=== PATIENT | female | born 1980 | race Caucasian/White ===

== ENCOUNTER 2017-10-09 11:28 | Inpatient (IN) | payer BC ==
[~2017-10-09] VITALS: Ht 170.2 cm; Wt 81.6 kg
--- NOTE | 2017-10-09 13:00 | NUR ---
REC'D TO ROOM 2230 AWAKE AND ALERT VIA WC. RESP EVEN AND UNLABORED WITH NO DISTRESS NOTED. DRESSING INTACT TO LEFT LOWER LEG. CAN EXPRESS NEEDS AND WANTS. NO C/O NOTED OR VOICED. IV STARTED TO RIGHT FOREARM WHICH WAS SUCCESSFUL. ASSESSMENT COMPLETED AT THIS TIME. C/L IN REACH AT BEDSIDE.
[2017-10-09 13:14] LABS: BASOPHILS 0.1 % (0-2); EOSINOPHILS 1.3 % (0-7); HEMATOCRIT 38.9 % (36.0-48.0); HEMOGLOBIN 13.2 g/dL (12-16); IMMATURE GRANULOCYTES 0.3 % (0-5); LYMPHOCYTES 18.8 % (15-50); MCHC 33.9 g/dL (31.0-37.0); MCV 88.4 fL (80.0-100.0); MEAN PLATELET VOLUME 11.1 fL (7.4-10.4); MONOCYTES 7.7 % (2-11); NEUTROPHILS 71.8 % (40-80); PLATELET COUNT 227 10x3/uL (130-400); RDW 13.2 % (11.5-14.5); WBC 8.7 10x3/uL (4.8-10.8)
[2017-10-09 13:19] LABS: ALBUMIN 3.2 g/dL (3.4-5.0); ALKALINE PHOSPHATASE 73 U/L (46-116); ALT (SGPT) 22 U/L (10-68); BILIRUBIN - TOTAL 0.31 mg/dL (0.2-1.3); CALC OSMOLALITY 279 mosm/kg (275-300); CALCIUM 8.7 mg/dL (8.5-10.1); CARBON DIOXIDE 26.3 mmol/L (21.0-32.0); CHLORIDE - SERUM 100 mmol/L (98-107); CREATININE - SERUM 0.8 mg/dL (0.6-1.3); POTASSIUM - SERUM 3.9 mmol/L (3.5-5.1); PROTEIN - SERUM 6.9 g/dL (6.4-8.2); SODIUM 137 mmol/L (136-145); UREA NITROGEN 14 mg/dL (7-18); eGFR NON AFRICAN AMERICAN 85 mL/min (90-120)
[2017-10-09 13:20] LABS: GLUCOSE 185 mg/dL (74-106)
[2017-10-09 15:04] VITALS: BP 101/68; BMI 28.2
[2017-10-09] MEDS ORDERED: INVOKANA300 MG PO (18:45)
[2017-10-09] MEDS ORDERED: GLUCOPHAGE1000 MG PO (18:45)
[2017-10-09] MEDS ORDERED: PROTONIX40 MG PO (18:45)
[2017-10-09] MEDS ORDERED: SYNTHROID50 MCG PO (18:46)
[2017-10-09] MEDS ORDERED: LISINOPRIL2.5 MG PO (18:46)
[2017-10-09] MEDS ORDERED: ADDERALL XR 3030 MG PO (18:48)
[2017-10-09] MEDS ORDERED: CLEOCIN HCL150 MG PO (18:49)
[2017-10-09] MEDS ORDERED: HYDROCODON-ACE1 EAC7 PO (18:50)
--- NOTE | 2017-10-09 19:00 | NUR ---
REPORT RECEIVED AND CARE OF PT ASSUMED. PT LYING IN SEMI MACK'S POSITION VISITING WITH FAMILY MEMBERS. IV IN RIGHT FA PATENT WITH NS INFUSING AT 75 ML / HR. WILL MONITOR CLOSELY FOR NEEDS.
--- NOTE | 2017-10-09 21:00 | NUR ---
OFFERED HS SNACK...PT DECLINES AT THIS TIME. TEACHING PERFORMED ON NPO STATUS AFTER MIDNIGHT.
--- NOTE | 2017-10-10 | NUR ---
NPO STATUS BEGINNING. ALL FOOD AND DRINKS REMOVED FROM BEDSIDE TABLE.
--- NOTE | 2017-10-10 02:14 | NUR ---
PT RESTING IN SUPINE POSITION WITH EYES CLOSED AND EASY RESPIRATIONS. WILL CONTINUE TO MONITOR FOR NEEDS.
[2017-10-10 05:15] LABS: BASOPHILS 0.4 % (0-2); EOSINOPHILS 2.8 % (0-7); HEMOGLOBIN 12.7 g/dL (12-16); IMMATURE GRANULOCYTES 0.7 % (0-5); LYMPHOCYTES 28.9 % (15-50); MCH 29.7 pg (26.0-34.0); MCHC 33.4 g/dL (31.0-37.0); MCV 88.8 fL (80.0-100.0); MEAN PLATELET VOLUME 11.2 fL (7.4-10.4); MONOCYTES 7.3 % (2-11); NEUTROPHILS 59.9 % (40-80); PLATELET COUNT 231 10x3/uL (130-400); RBC 4.28 10x6/uL (4.00-5.40); RDW 13.3 % (11.5-14.5)
[2017-10-10 05:22] LABS: WBC 5.6 10x3/uL (4.8-10.8)
[2017-10-10 05:55] LABS: CALC OSMOLALITY 277 mosm/kg (275-300); CALCIUM 8.5 mg/dL (8.5-10.1); CARBON DIOXIDE 26.6 mmol/L (21.0-32.0); CHLORIDE - SERUM 104 mmol/L (98-107); CREATININE - SERUM 0.8 mg/dL (0.6-1.3); GLUCOSE 138 mg/dL (74-106); POTASSIUM - SERUM 3.5 mmol/L (3.5-5.1); SODIUM 138 mmol/L (136-145); UREA NITROGEN 12 mg/dL (7-18); eGFR NON AFRICAN AMERICAN 85 mL/min (90-120)
--- NOTE | 2017-10-10 07:55 | NUR ---
PT AOX4 RESP EVEN AND NONLABORED PT DENIES NEEDS AT THIS TIME IV TO RIGHT FOREARM PATENT AND INTACT AT THIS TIME SRX2 BED AT LOWEST SETTING CALL LIGHT WITHIN REACH WILL CONTINUE TO MONITOR
[2017-10-10 08:36] VITALS: BP 98/64
[2017-10-10 11:03] VITALS: Ht 170.2 cm; Wt 81.6 kg
--- NOTE | 2017-10-10 11:15 | NUR ---
Patient Name: GUILLERMINA JOSEPH Admission Status: Elective Accout number: [id number] Admission Date: 10-09-2017 : 1980 Admission Diagnosis: Attending: Shade Welsh Current LOS: 1 Anticipated DC Date: 10-14-2017 Planned Disposition: Home Primary Insurance: [employer] O Discharge Planning Comments: CM MET WITH PATIENT AND MOM (ALEXIS) REGARDING D/C NEEDS AND PLANS. PATIENT STATED SHE LIVES ALONE WITH HER CHILD. PATIENT STATED THERE ARE 14 STEPS W/RAILS TO ENTER HOME AND NO STAIRS INSIDE. PATIENT IS INDEPENDENT WITH HER CARE AND HAS A GLUCOMETER AT HOME (CHECKS 3 X DAY). PATIENTS PCP IS DR. WELSH AND PHARMACY IS [facility]. PATIENTS MOTHER HELPS WHEN NEEDED PER PATIENT. CM WILL CONTINUE TO FOLLOW PATIENT WITH D/C NEEDS AND PLANS. PCP DR. BLAISE SHERMANPlanGMarj- [phone] ALEXIS (MOM) [phone] Hay Sorter: Vandana Parson Is the patient Alert and Oriented? Yes 0 * How many steps to enter\exit or inside your home? 14 W/RAILS 0 * PCP DR. WELSH 0 * Pharmacy [facility] 0 * Preadmission Environment Home with Family 0 * ADLs Independent 0 * Equipment Glucometer 0 * List name and contact numbers for known caregivers / representatives who currently or will assist patient after discharge: ALEXIS (MOM) [phone] * Community resources currently utilized None 0 * Additional services required to return to the preadmission environment? Yes 0 * Can the patient safely return to the preadmission environment? Yes 0 * Has this patient been hospitalized within the prior 30 days at any hospital? No 0 Grand Total: 0
[2017-10-10 12:14] VITALS: BP 114/69
[2017-10-10 13:18] LABS: HCG SERUM NEGATIVE (NEGATIVE)
[2017-10-10 15:18] VITALS: BP 104/73
--- NOTE | 2017-10-10 19:00 | NUR ---
REPORT RECEIVED AND CARE OF PT ASSUMED. PT LYING IN SUPINE POSITION VISITING WITH SPOUSE. IV IN RIGHT FA PATENT WITH NS INFUSING AT 75 ML / HR. DRESSING ON LEFT CALD CLEAN AND DRY. WILL MONITOR CLOSELY FOR NEEDS.
[2017-10-10 20:00] VITALS: BP 104/73
--- NOTE | 2017-10-10 21:30 | NUR ---
PT RESGINT QUIETLY IN SUPINE POSITION WITH EYES CLOSED. SPOUSE IS AT BEDSIDE.
[2017-10-11] VITALS: BP 108/50
--- NOTE | 2017-10-11 03:43 | NUR ---
IV IN RIGHT FA LEAKING AND SWOLLEN. REMOVED WITH CATHETER TIP INTACT. RE-SITED TO RIGHT WRIST USING 20 GUAGE CATHETER IN ONE STICK. IV FLUIDS RE-STARTED.
[2017-10-11 04:00] VITALS: BP 106/60
[2017-10-11 06:54] LABS: BASOPHILS 0 % (0-2); EOSINOPHILS 3.3 % (0-7); HEMATOCRIT 36.1 % (36.0-48.0); HEMOGLOBIN 12.1 g/dL (12-16); IMMATURE GRANULOCYTES 0.4 % (0-5); LYMPHOCYTES 34.8 % (15-50); MCHC 33.5 g/dL (31.0-37.0); MCV 89.6 fL (80.0-100.0); MEAN PLATELET VOLUME 10.7 fL (7.4-10.4); MONOCYTES 10.1 % (2-11); NEUTROPHILS 51.4 % (40-80); PLATELET COUNT 223 10x3/uL (130-400); RBC 4.03 10x6/uL (4.00-5.40); RDW 13.2 % (11.5-14.5); WBC 5.2 10x3/uL (4.8-10.8)
--- NOTE | 2017-10-11 07:00 | NUR ---
PT REC'D FROM [facility]. RESTING IN BED WATCHING TV. AAOX4. RATING CURRENT PAIN IN LLE 03/03. WILL REASSESS. SEROSANGUINOUS DRAINAGE NOTED TO JESSICA WRAP. CIRCLED, INITIALED, AND TIMED. WILL CHANGE DRESSING ONCE ORDERS ARE RECIEVED. PIV TO R WRIST FREE OF REDNESS AND SWELLING. BED LOW, CALL LIGHT IN REACH, DENIES NEEDS. CPOC.
[2017-10-11 07:20] LABS: CALC OSMOLALITY 276 mosm/kg (275-300); CALCIUM 8.1 mg/dL (8.5-10.1); CARBON DIOXIDE 23.6 mmol/L (21.0-32.0); CHLORIDE - SERUM 107 mmol/L (98-107); CREATININE - SERUM 0.6 mg/dL (0.6-1.3); GLUCOSE 99 mg/dL (74-106); POTASSIUM - SERUM 3.6 mmol/L (3.5-5.1); SODIUM 140 mmol/L (136-145); eGFR NON AFRICAN AMERICAN > 90 mL/min (90-120)
[2017-10-11 07:21] LABS: UREA NITROGEN 7 mg/dL (7-18)
--- NOTE | 2017-10-11 09:55 | NUR ---
MORNING MEDS PASSED AT THIS TIME. PRN PAIN MEDICATION ADMINISTERED WELL. CURRENT PAIN LEVEL 05/03. DR. WELSH AT BEDSIDE. DRESSING TAKEN OFF BY DR. WELSH AND LEFT OPEN TO AIR. ANGELES REIDGLOVE CUTTER, CONTACTED FOR IODOFORM GUAZE TO CHANGE PACKING. BED LOW, CALL LIGHT IN REACH, DENIES NEEDS. CPOC.
[2017-10-11 10:10] VITALS: BP 102/70
--- NOTE | 2017-10-11 10:15 | NUR ---
PATIENT IN BED WITH IV ITNACT. NO COMPLAINTS. CALL LIGHT WITHIN REACH.
--- NOTE | 2017-10-11 10:26 | HP ---
PATIENT: GUILLERMINA JOSEPH MEDICAL RECORD: [id number] ACCOUNT: [id number] LOCATION:[id number] : [birth year] ADMISSION DATE: 10/09/17 HISTORY AND PHYSICAL EXAMINATION HISTORY OF PRESENT ILLNESS: A 37-year-old female presented to the office a couple of days ago with redness and swelling in her left leg. 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 She had this area opened up 2 days ago with some drainage of some paul pus. Wound culture was obtained. Those results are still pending. She was initially started on clindamycin p.o., came back for repacking yesterday. The area had gotten a little less violaceous, but the redness had spread some. She was still having some fevers, wanted to avoid going in the hospital, gave her a shot of Rocephin, continued the clindamycin. Today, she has been having trouble keeping the clindamycin down, throwing up. The area has progressed to some more redness on the leg, and she is now requiring inpatient admission for IV antibiotics. PAST MEDICAL HISTORY: She does have a past medical history that includes diabetes, microalbuminuria, hypertriglyceridemia, hypothyroidism. ALLERGIES: STATINS. MEDICATIONS: At home include gemfibrozil 600 mg daily, Invokana 300 mg daily, levothyroxine 75 mcg daily, lisinopril 2.5 mg daily, metformin 1000 mg b.i.d., pantoprazole 40 mg daily. SOCIAL HISTORY: She does not smoke, use alcohol or drugs. She is a teacher. REVIEW OF SYSTEMS: CONSTITUTIONAL: Has had some fevers and chills. HEENT: No visual or auditory changes, sore throat, rhinorrhea, dysphagia. CARDIOPULMONARY: No chest pain, palpitation, or orthopnea. No cough or hemoptysis. GASTROINTESTINAL: No abdominal pain. Has had some nausea and vomiting after taking the clindamycin. No hematemesis. MUSCULOSKELETAL: Pain, swelling and redness of the left lower leg. NEUROLOGIC: Grossly intact. PHYSICAL EXAMINATION: VITAL SIGNS: Today, blood pressure was 100/60, pulse of 105, respirations 16, temperature 99.1. HEENT: Unremarkable. NECK: Supple. No JVD or adenopathy. HEART: Had S1 and S2. No murmurs or rubs. LUNGS: Clear. No rhonchi, rales, or wheezing. ABDOMEN: Soft, nontender, nondistended. EXTREMITIES: Leg had swelling and erythema around the left lower extremity with central area of abscess that had been opened up previously. Packing was in place. The leg was warm and tender to touch. ASSESSMENT AND PLAN: Cellulitis with abscess, left leg with diabetes, failure of outpatient treatment. We are going to admit the patient, consult ortho and infectious disease, start her on IV vancomycin. We will get MRI to try to ascertain how much abscess or fluid collection may still be left in the leg. We HISTORY AND PHYSICAL [id number] GUILLERMINA JOSEPH will defer to ortho to possible further debridement. Continue with home medications, pain control as needed. Lovenox for deep venous thrombosis prophylaxis. TRANSINT:[id number] Voice Confirmation ID: [id number] DOCUMENT ID: [id number] PANCHITO WELSH DO at 1026 CC: [id number] DICTATION DATE: 10/09/17838 EXECUTIVE PERSONAL ASSISTANT: 10/09/17 0933 ADM IN [facility] [address] [place] [address]
[2017-10-11 13:39] VITALS: BP 96/68
[2017-10-11 16:51] VITALS: BP 100/72
[2017-10-11 20:00] VITALS: BP 101/63
--- NOTE | 2017-10-11 20:22 | NUR ---
PATIENT RESTING IN BED AND DENIES NEEDS AT THIS TIME. BED IN LOWEST POSITION AND CALL LIGHT WITHIN REACH. ENCOURAGED THE PATIENT TO CALL IF SHE HAS NEEDS.
[2017-10-12] VITALS: BP 108/77
[2017-10-12 04:00] VITALS: BP 100/63
[2017-10-12 05:11] LABS: BASOPHILS 0.2 % (0-2); EOSINOPHILS 2.3 % (0-7); HEMATOCRIT 36.9 % (36.0-48.0); IMMATURE GRANULOCYTES 0.2 % (0-5); LYMPHOCYTES 34.2 % (15-50); MCH 29.6 pg (26.0-34.0); MCHC 32.5 g/dL (31.0-37.0); MCV 91.1 fL (80.0-100.0); MEAN PLATELET VOLUME 10.5 fL (7.4-10.4); MONOCYTES 9.9 % (2-11); NEUTROPHILS 53.2 % (40-80); PLATELET COUNT 238 10x3/uL (130-400); RBC 4.05 10x6/uL (4.00-5.40); RDW 13.2 % (11.5-14.5); WBC 4.9 10x3/uL (4.8-10.8)
[2017-10-12 05:39] LABS: CALC OSMOLALITY 278 mosm/kg (275-300); CALCIUM 7.8 mg/dL (8.5-10.1); CARBON DIOXIDE 26.4 mmol/L (21.0-32.0); CHLORIDE - SERUM 106 mmol/L (98-107); CREATININE - SERUM 0.7 mg/dL (0.6-1.3); GLUCOSE 94 mg/dL (74-106); POTASSIUM - SERUM 3.5 mmol/L (3.5-5.1); SODIUM 141 mmol/L (136-145); UREA NITROGEN 7 mg/dL (7-18); eGFR NON AFRICAN AMERICAN > 90 mL/min (90-120)
--- NOTE | 2017-10-12 07:00 | NUR ---
REPORT RECIEVED ASSUMED CARE. PATIENT IN BED WITH NO COMPLAINTS. CALL LIGHT WITHIN REACH.
--- NOTE | 2017-10-12 07:46 | NUR ---
PT C/O CALF PAIN IN RT LEG, STATED MUSCLES GET TIGHT AND HAS BEEN FLEXING CALF TO RELIEVE PAIN AND USING SCD ON WRAPPED LEG. HAD BEEN NAUSEOUS THIS MORNING AND ASKED TO ALLOW TIME TO TAKE MEDS WHEN STOMACH FELT BETTER. BED IN LOWEST POSITION, CALL LIGHT IN REACH, CONTINUE WITH PLAN OF CARE
[2017-10-12 08:31] VITALS: BP 104/59
[2017-10-12] MEDS ORDERED: SYNTHROID75 MCG PO (09:39)
[2017-10-12] MEDS ORDERED: GEMFIBROZIL600 MG PO (09:40)
[2017-10-12] MEDS ORDERED: BACTRIM DS TABL1 TAB PO (09:40)
--- NOTE | 2017-10-12 12:00 | NUR ---
RECIEVED DC ORDERS FROM , CHANGED PT DRESSING AND GATHEED DRESSING SUPPLIES FOR PT, WENT OVER DC INSTRUCTIONS AND ENCOURAGED PT TO CALL WITH QUESTIONS OR CONCERNS
--- NOTE | 2017-10-12 13:16 | NUR ---
LATE ENTRY 1130 CM MET WITH PATIENT REGARDING CHOICE OF HOME HEALTH. CM DID INFORM THE PATIENT I HAD CALLED THE 5 PROVIDERS FOR THIS AREA AND THEY ARE SCHEDULING VISITS INTO FRIDAY AND FRIDAY. THE PATIENT STATED SHE DOES NOT FEEL SHE NEEDS HOME HEALTH IF THEY MAYBE COMING ON FRIDAY. SHE STATES HER FATHER AND SISTER ARE NURSES AND CAN CHANGE HER DRESSINGS. CM ADVISED WE WILL PROVIDE DRESSINGS FOR THE WOUND CARE. ADVISED HER SHE WOULD NEED TO CALL THE MD OFFICE IF SHE HAS DIFFICULTY OR CHANGES HER MIND. JASON SPOKE WITH THE PRIMARY NURSE, MELISSA, REGARDING PT'S DECISION AND NEED FOR SUPPLIES. 1315 DR KIDD ROUNDED THIS PM. CM ADVISED HIM THE PATIENT HAD DECLINED HOME HEALTH AND WHY. HE IS OKAY WITH FAMILY PROVIDING WOUND CARE.
--- NOTE | 2017-12-01 16:57 | OP ---
PATIENT NAME: GUILLERMINA JOSEPH MEDICAL RECORD: [id number] :[birth year] LOCATION:[facility] ADMISSION DATE:10/09/17 SURGEON: GIANFRANCO KIDD MD DATE OF OPERATION: 10/10/2017 PREOPERATIVE DIAGNOSES: Left calf abscess. POSTOPERATIVE DIAGNOSES: Left calf abscess. PROCEDURE: Excisional debridement of left calf abscess to include significant skin, subcutaneous tissue, portions of fat, fascia, and muscle. SURGEON: Gianfranco Kidd MD ANESTHESIA: General. INTRAOPERATIVE COMPLICATIONS: None. SUMMARY OF PATHOLOGIC FINDINGS: Unfortunately, this young lady had a deep abscess that is very amenable to irrigation, debriding, and packing. OPERATIVE SUMMARY IN DETAIL: After obtaining the appropriate orthopedic surgery consent as well as anesthetic consultation, evaluation, and clearance, the patient was brought to the operating room and placed on the operating table in supine position. After general laryngeal mask airway was administered, the patient's left lower extremity was prepped and draped in a routine sterile fashion. The area of abscess was elongated and then serial sequential debridement was carried out by both scalpel, rongeur, and curettage to take down to the level of the fascia, no deeper than bone. After copious pulsatile lavage irrigation, the leg was packed, sterile dressings were applied. The patient was awakened, taken to recovery in stable condition. All final needle and sponge counts were correct. TRANSINT:[id number] Voice Confirmation ID: [id number] DOCUMENT ID: [id number] GIANFRANCO KIDD MD at 1657 CC: [id number] DICTATION DATE: 11/28/17 1512 COATING OPERATOR: 11/28/17 1606 DIS IN 10/12/17 [facility] [address] [place] [address]
== END 2017-10-12 12:25 | disposition home or self-care (01) | DRG 638 ==
LOC: D.MS 11:28 → D.SDCHOLD 11:28 → D.MS 12:33
PROVIDERS: Orthopaedic Surgery; ADMIT Family Medicine
PROC: 0H9LXZZ Drainage of Left Lower Leg Skin, External Approach (ICD-10-PCS; principal; 2017-10-10 11:30)
DX: E11.628 Type 2 diabetes mellitus with other skin complications (principal); L03.116 Cellulitis of left lower limb; E03.9 Hypothyroidism, unspecified; R80.9 Proteinuria, unspecified; B95.62 Methicillin resistant Staphylococcus aureus infection as the cause of diseases classified elsewhere